=== PATIENT | male | born 1955 | race Caucasian/White ===

== ENCOUNTER 2023-07-07 23:29 | Emergency (ER) | payer OTHER ==
[~2023-07-07] VITALS: Ht 175.3 cm; Wt 89.8 kg
[~2023-07-07 23:29] MED LIST: LISINOPRIL10 MG
[2023-07-07] MEDS ORDERED: IRBESARTAN75 MG PO (23:42)
[2023-07-08 03:31] LABS: URINE APPEARANCE Turbid; URINE BILIRRUBIN Small (NEGATIVE); URINE BLOOD Large; URINE COLOR Orange; URINE GLUCOSE Negative (NEGATIVE); URINE LEUKOCYTE Large; URINE NITRATE Positive
[2023-07-08 03:35] LABS: URINE BACTERIA 1000.4 uL (0.0-1933); URINE EPITHELIAL CELLS 4.3 uL (0.0-38.8); URINE WBC 2925.9 uL (0.0-23.2)
[2023-07-08 03:41] LABS: HEMATOCRIT 44.5 % (39.0-48.0); HEMOGLOBIN 15.1 g/dL (13-16.00); MEAN CELL VOLUME 86.6 fL (80.0-100.00); MEAN CORPUSCULAR HEMOGLOBIN 29.3 pg (27.00-32.0); MEAN CORPUSCULAR HGB CONC 33.8 g/dl (32.0-36.0); PLATELET COUNT 255 K/uL (150-450); RED BLOOD COUNT 5.15 M/uL (4.00-6.00); RED CELL DISTRIBUTION WIDTH 12.9 % (11.5-14.5)
[2023-07-08 03:57] LABS: URINE PROTEIN 100 (NEGATIVE); URINE RBC > 10558.9 uL (0.0-20.8)
[2023-07-08 03:58] LABS: URINE CRYSTALS MODERATE /HPF; URINE YEAST FEW /hpf
[2023-07-08 04:00] LABS: CREATININE SERUM 1.34 mg/dL (0.70-1.30); GFR 53.33; POTASSIUM 3.94 mEq/L (3.5-5.1)
== END 2023-07-08 04:10 | disposition home or self-care (01) ==
LOC: ER 23:29
DX: R30.0 Dysuria (principal); N39.0 Urinary tract infection, site not specified; I10 Essential (primary) hypertension
CPT/HCPCS: 36415; 96365; 99282; J0744

== ENCOUNTER 2023-07-27 10:20 | Emergency (ER) | payer OTHER ==
[~2023-07-27] VITALS: Ht 175.3 cm; Wt 89.8 kg
[~2023-07-27 10:20] MED LIST changes: +IRBESARTAN75 MG PO
[2023-07-27 13:03] LABS: URINE APPEARANCE Clear; URINE BILIRRUBIN Negative (NEGATIVE); URINE BLOOD Negative; URINE COLOR Yellow; URINE GLUCOSE Negative (NEGATIVE); URINE LEUKOCYTE Trace; URINE NITRATE Negative; URINE PROTEIN Negative (NEGATIVE); URINE UROBILINOGEN 0.2 E.U./dl
[2023-07-27 13:07] LABS: URINE WBC 27.7 uL (0.0-23.2)
[2023-07-27 13:10] LABS: URINE BACTERIA 1.2 uL (0.0-1933); URINE EPITHELIAL CELLS 0.4 uL (0.0-38.8); URINE RBC 0.1 uL (0.0-20.8)
[2023-07-27 13:43] LABS: HEMATOCRIT 47.4 % (39.0-48.0); HEMOGLOBIN 15.9 g/dL (13-16.00); MEAN CELL VOLUME 86.2 fL (80.0-100.00); MEAN CORPUSCULAR HEMOGLOBIN 28.9 pg (27.00-32.0); MEAN CORPUSCULAR HGB CONC 33.5 g/dl (32.0-36.0); PLATELET COUNT 373 K/uL (150-450); RED BLOOD COUNT 5.49 M/uL (4.00-6.00); RED CELL DISTRIBUTION WIDTH 13.6 % (11.5-14.5)
[2023-07-27 14:56] LABS: ALBUMIN 3.9 gm/dL (3.4-5.0); BILIRUBIN TOTAL 2.73 mg/dL (0.3-1.2); CALCIUM 9.2 mg/dL (8.5-10.1); CREATININE SERUM 1.2 mg/dL (0.70-1.30); GFR 60.58; TOTAL PROTEIN 7.9 gm/dL (6.4-8.2)
[2023-07-27 14:58] LABS: POTASSIUM 4.61 mEq/L (3.5-5.1)
[2023-07-27 14:59] LABS: BILIRUBIN,CONJUGATED 0.62 mg/dL (0.0-0.2); BILIRUBIN,UNCONJUGATED 2.11 mg/dL (0.0-0.6)
[2023-07-27 15:18] LABS: PH,URINE 5.5 (5.0-8.0); URINE APPEARANCE Clear; URINE BILIRRUBIN Negative (NEGATIVE); URINE BLOOD Negative; URINE COLOR Yellow; URINE GLUCOSE Negative (NEGATIVE); URINE LEUKOCYTE Small; URINE NITRATE Negative; URINE PROTEIN Negative (NEGATIVE); URINE UROBILINOGEN 0.2 E.U./dl
[2023-07-27 15:21] LABS: URINE BACTERIA 6.2 uL (0.0-1933); URINE WBC 57.5 uL (0.0-23.2)
[2023-07-27 15:25] LABS: URINE EPITHELIAL CELLS 0.7 uL (0.0-38.8); URINE RBC 0.1 uL (0.0-20.8)
== END 2023-07-27 17:36 | disposition home or self-care (01) ==
LOC: ER 10:20
PROVIDERS: General Practice
DX: R19.7 Diarrhea, unspecified (principal); Z20.822 Contact with and (suspected) exposure to COVID-19
CPT/HCPCS: 36415; 96365; 99283; J7120

== ENCOUNTER 2025-02-22 12:27 | Emergency (ER) | payer OTHER ==
[~2025-02-22] VITALS: Ht 175.3 cm; Wt 88.5 kg
[2025-02-22] MEDS ORDERED: KETOROLAC TROMETHAMINE 30 MG VIAL IM STA (16:23)
[2025-02-22] MEDS ORDERED: KETOROLAC TROMETHAMINE 30 MG VIAL ONE (16:28)
[2025-02-22] MEDS ORDERED: IBU800 MG PO (18:34)
[2025-02-22] MEDS ORDERED: ACETAMINOPHEN500 M2 PO (18:34)
== END 2025-02-22 20:38 | disposition home or self-care (01) ==
LOC: ER 12:27
DX: S82.892A Other fracture of left lower leg, initial encounter for closed fracture (principal); W19.XXXA Unspecified fall, initial encounter; Y93.89 Activity, other specified; Y92.096 Garden or yard of other non-institutional residence as the place of occurrence of the external cause; Y99.8 Other external cause status
CPT/HCPCS: 73600; 96372; 99283; J1885

== ENCOUNTER 2025-06-15 08:57 | Emergency (ER) | payer OTHER ==
[~2025-06-15] VITALS: Ht 175.3 cm; Wt 93.0 kg
[~2025-06-15 08:57] MED LIST changes: +ACETAMINOPHEN500 M2 PO; +IBU800 MG PO
[2025-06-15] MEDS ORDERED: CARDURA1 MG (09:52)
[2025-06-15] MEDS ORDERED: NORFLEX100MG PO (11:09)
[2025-06-15] MEDS ORDERED: PREDNISONE20 MG PO (11:09)
[2025-06-15] MEDS ORDERED: DICLOFENAC SODI75 MG PO (11:09)
[2025-06-15] MEDS ORDERED: ORPHENADRINE CITRATE 30 MG/ML AMPUL IM ONE (11:15)
[2025-06-15] MEDS ORDERED: DEXAMETHASONE SODIUM PHOSPHATE 4 MG/ML VIAL IM ONE (11:15)
[2025-06-15] MEDS ORDERED: KETOROLAC TROMETHAMINE 30 MG VIAL IM ONE (11:15)
[2025-06-15] MEDS ORDERED: DEXAMETHASONE SODIUM PHOSPHATE 4 MG/ML VIAL ONE (11:18)
[2025-06-15] MEDS ORDERED: ORPHENADRINE CITRATE 30 MG/ML AMPUL ONE (11:18)
[2025-06-15] MEDS ORDERED: KETOROLAC TROMETHAMINE 30 MG VIAL ONE (11:18)
== END 2025-06-15 12:50 | disposition home or self-care (01) ==
LOC: ER 08:57
DX: M54.59 Other low back pain (principal); I10 Essential (primary) hypertension
CPT/HCPCS: 96372; 99282; J1100; J1885; J2360